=== PATIENT | female | born 1970 | race Two or more races ===

== ENCOUNTER 2021-05-20 09:00 | Emergency (ER) | payer BC ==
[~2021-05-20] VITALS: Ht 162.6 cm; Wt 83.1 kg
--- NOTE | 2021-05-20 09:09 | PHYS DOC ---
Past Medical History Past Medical History: Hypertension General Adult EDM: Chief Complaint: CHEST PAIN HPI: HPI: Patient is a 51 year old female who present to ER for evaluation of right-sided chest pain that radiated to her right shoulder started yesterday. The pain now radiates to her mid epigastric area. Patient also complained of some headache. Patient denies any personal history coronary artery disease or history of blood clot disorder. Patient has history of hypertension. Patient do have family history of coronary artery disease. Patient denies any cough or fever. Patient said she has been in a work out program, has been pulling weight. Patient said she lost 15 lbs in 2 months. She said on Tuesday, she started a new work out program. Review of Systems: Review of Systems: Constitutional: Denies fever or chills. [] Eyes: Denies change in visual acuity. [] HENT: Denies nasal congestion or sore throat. [] Respiratory: Denies cough or shortness of breath. [] Cardiovascular: Denies chest pain or edema. [] GI: Denies abdominal pain, nausea, vomiting, bloody stools or diarrhea. [] : Denies dysuria. [] Musculoskeletal: Denies back pain or joint pain. [] Integument: Denies rash. [] Neurologic: Denies headache, focal weakness or sensory changes. [] Endocrine: Denies polyuria or polydipsia. [] Lymphatic: Denies swollen glands. [] Psychiatric: Denies depression or anxiety. [] Heart Score: C/O Chest Pain: Yes HEART Score for Chest Pain: HEART Score for Chest Pain Response (Comments) Value History Slighlty/Non-Suspicious 0 ECG Normal 0 Age >45 - < 65 1 Risk Factors 1 or 2 Risk Factors 1 Troponin < Normal Limit 0 Total 2 Risk Factors: Risk Factors: DM, Current or recent (<one month) smoker, HTN, HLP, family h istory of CAD, obesity. Risk Scores: Score 0 - 3: 2.5% MACE over next 6 weeks - Discharge Home Score 4 - 6: 20.3% MACE over next 6 weeks - Admit for Clinical Observation Score 7 - 10: 72.7% MACE over next 6 weeks - Early Invasive Strategies Physical Exam: PE: Constitutional: Well developed, well nourished, no acute distress, non-toxic appearance. [] HENT: Normocephalic, atraumatic, bilateral external ears normal, oropharynx moist, no oral exudates, nose normal. [] Eyes: PERRLA, EOMI, conjunctiva normal, no discharge. [] Neck: Normal range of motion, no tenderness, supple, no stridor. [] Cardiovascular:Heart rate regular rhythm, no murmur [] Lungs & Thorax: Bilateral breath sounds clear to auscultation [] Abdomen: Bowel sounds normal, soft, no tenderness, no masses, no pulsatile masses. [] Skin: Warm, dry, no erythema, no rash. [] Back: No tenderness, no CVA tenderness. [] Extremities: No tenderness, no cyanosis, no clubbing, ROM intact, no edema. [] Neurologic: Alert and oriented X 3, normal motor function, normal sensory function, no focal deficits noted. [] Psychologic: Affect normal, judgement normal, mood normal. [] Current Patient Data: Labs: Laboratory Tests Test 05/20/21 09:30 White Blood Count 5.7 x10^3/uL Red Blood Count 4.70 x10^6/uL Hemoglobin 14.0 g/dL Hematocrit 41.3 % Mean Corpuscular Volume 88 fL Mean Corpuscular Hemoglobin 30 pg Mean Corpuscular Hemoglobin Concent 34 g/dL Red Cell Distribution Width 13.3 % Platelet Count 181 x10^3/uL Neutrophils (%) (Auto) 59 % Lymphocytes (%) (Auto) 32 % Monocytes (%) (Auto) 7 % Eosinophils (%) (Auto) 2 % Basophils (%) (Auto) 1 % Neutrophils # (Auto) 3.3 x10^3/uL Lymphocytes # (Auto) 1.8 x10^3/uL Monocytes # (Auto) 0.4 x10^3/uL Eosinophils # (Auto) 0.1 x10^3/uL Basophils # (Auto) 0.1 x10^3/uL Sodium Level 142 mmol/L Potassium Level 3.7 mmol/L Chloride Level 105 mmol/L Carbon Dioxide Level 27 mmol/L Anion Gap 10 Blood Urea Nitrogen 19 mg/dL Creatinine 0.8 mg/dL Estimated GFR (Cockcroft-Gault) 75.6 BUN/Creatinine Ratio 24 Glucose Level 96 mg/dL Calcium Level 8.9 mg/dL Magnesium Level 2.2 mg/dL Total Bilirubin 0.3 mg/dL Aspartate Amino Transf (AST/SGOT) 17 U/L Alanine Aminotransferase (ALT/SGPT) 24 U/L Alkaline Phosphatase 62 U/L Troponin I Quantitative < 0.017 ng/mL LN-Ixe-M-Type Natriuretic Peptide 16 pg/mL Total Protein 7.2 g/dL Albumin 3.5 g/dL Albumin/Globulin Ratio 0.9 Lipase 120 U/L Current Medications Medications (Trade) Dose Ordered Sig/Betty Route PRN Reason Start Time Stop Time Status Last Admin Dose Admin Multi-Ingredient Mouthwash/Gargle (Gi Cocktail) 20 ml 1X ONCE SWSW 05/20/21 11:00 05/20/21 11:01 DC 05/20/21 11:14 Famotidine (Pepcid Vial) 20 mg 1X ONCE IVP 05/20/21 11:00 05/20/21 11:01 DC 05/20/21 11:00 Iohexol (Omnipaque 350 Mg/ml) 90 ml 1X ONCE IV 05/20/21 12:15 05/20/21 12:16 DC Info (CONTRAST GIVEN -- Rx MONITORING) 1 each PRN DAILY PRN MC SEE COMMENTS 05/20/21 12:15 05/22/21 12:14 EKG: EKG: EKG was done at 907, heart rate 66 bpm, normal sinus rhythm, normal axis, no ST segment elevation. Radiology/Procedures: Radiology/Procedures: [][facility] [address] [place] [address] IMAGING REPORT Signed PATIENT: SHIVANI FERNANDEZACCOUNT: [id number] : 1970 LOCATION: ER AGE: 51 SEX: F EXAM STATUS: PRE ER ORD. PHYSICIAN: KARI GRANDA DO REASON: chest pain PROCEDURE: PORTABLE CHEST 1V EXAM: Chest, single view. HISTORY: Chest pain. COMPARISON: None. FINDINGS: A frontal view of the chest is obtained. There is no infiltrate, pleural effusion or pneumothorax. The heart is normal in size. IMPRESSION: No acute pulmonary finding. Electronically signed by: Francisca Anderson MD (05/20/2021 9:55 AM) [id number] DICTATED and SIGNED BY: FRANCISCA ANDERSON MD DATE: 05/20/21 [id number] [facility] [address] [place] [address] IMAGING REPORT Signed PATIENT: SHIVANI FERNANDEZACCOUNT: [id number] : 1970 LOCATION: ER AGE: 51 SEX: F EXAM STATUS: REG ER ORD. PHYSICIAN: KARI GRANDA DO REASON: RUQ/EPIGASTRIC ABDOMINAL PAIN PROCEDURE: ABDOMEN LTD EXAM: Abdomen sonogram. HISTORY: Pain. TECHNIQUE: Sonographic imaging of the abdomen was performed. COMPARISON: None. FINDINGS: The liver is normal in size. No focal hepatic lesion is seen. The gallbladder is unremarkable. The common bile duct is normal in caliber. The right kidney and vena cava are unremarkable. The pancreas is predominantly obscured due to bowel gas. IMPRESSION: 1. No acute sonographic finding. 2. Limited evaluation of the pancreas due to bowel gas. Electronically signed by: Francisca Anderson MD (05/20/2021 11:01 AM) [id number] DICTATED and SIGNED BY: FRANCISCA ANDERSON MD DATE: 05/20/21 [id number] 0 Course & Med Decision Making: Course & Med Decision Making Pertinent Labs and Imaging studies reviewed. (See chart for details) Patient is a 51-year-old female who present to ER due to right-sided chest pain that radiated to her mid epigastric area., EKG and cardiac enzymes came back normal. However, abdominal ultrasound did not show an acute problem. Patient was given GI cocktail and Pepcid, see few much better. Patient declined to have CTA of her chest to rule out dissection or PE. Patient states she will go home and follow-up with her family physician for outpatient follow-up Adam Disclaimer: Adam Disclaimer: This electronic medical record was generated, in whole or in part, using a voice recognition dictation system. Departure Departure Impression: Primary Impression: Chest pain Additional Impression: Gastritis Disposition: HOME / SELF CARE / HOMELESS Condition: IMPROVED Patient Instructions: Chest Pain (Nonspecific), Gastritis, Adult Additional Instructions: Thank you for visiting our Emergency Department. We appreciate you trusting us with your care. If any additional problems come up don't hesitate to return to visit us. Please follow up with your primary care provider so they can plan additional care if needed and know about the problem that you had. If symptoms worsen come back to the Emergency Department. Any concerning symptoms that start such as chest pain, shortness of air, weakness or numbness on one side of the body, running high fevers or any other concerning symptoms return to the ER. Scripts Sucralfate (CARAFATE) 1 Gm Tablet 1 TAB PO QID for 14 Days, #56 TAB 0 Refills Prov: KARI GRANDA DO 05/20/21 Omeprazole Magnesium (PRILOSEC OTC) 20 Mg Tablet. 1 TAB PO DAILY for 30 Days, #30 TAB 0 Refills Prov: KARI GRANDA DO 05/20/21 KARI GRANDA DO May 20, 2021 09:09
[2021-05-20 09:46] LABS: BASO # 0.1 x10^3/uL (0.0-0.2); BASO % 1 % (0-3); EOS # 0.1 x10^3/uL (0.0-0.7); EOS % 2 % (0-3); HEMATOCRIT 41.3 % (36.0-47.0); LYMPH # 1.8 x10^3/uL (1.0-4.8); LYMPH % 32 % (24-48); MEAN CORPUSCULAR HEMOGLOBIN 30 pg (25-35); MEAN CORPUSCULAR HGB CONC 34 g/dL (31-37); MEAN CORPUSCULAR VOLUME 88 fL (79-100); MONO # 0.4 x10^3/uL (0.0-1.1); MONO % 7 % (0-9); NEUT # 3.3 x10^3/uL (1.8-7.7); NEUT % 59 % (31-73); PLATELET COUNT 181 x10^3/uL (140-400); RED CELL DISTRIBUTION WIDTH 13.3 % (11.5-14.5); WHITE BLOOD COUNT 5.7 x10^3/uL (4.0-11.0)
[2021-05-20 09:57] LABS: CALCIUM 8.9 mg/dL (8.5-10.1); CREATININE 0.8 mg/dL (0.6-1.0); GFR 75.6; POTASSIUM 3.7 mmol/L (3.5-5.1)
--- NOTE | 2021-05-20 09:58 | RAD ---
EXAM: Chest, single view. HISTORY: Chest pain. COMPARISON: None. FINDINGS: A frontal view of the chest is obtained. There is no infiltrate, pleural effusion or pneumo thorax. The heart is normal in size. IMPRESSION: No acute pulmonary finding. Electronically signed by: Francisca Anderson MD (05/20/2021 9:55 AM) [id number]
[2021-05-20 10:03] LABS: ALBUMIN 3.5 g/dL (3.4-5.0); ALBUMIN/GLOBULIN RATIO 0.9 (1.0-1.7); MAGNESIUM 2.2 mg/dL (1.8-2.4); TOTAL BILIRUBIN 0.3 mg/dL (0.2-1.0); TOTAL PROTEIN 7.2 g/dL (6.4-8.2)
[2021-05-20] MEDS ORDERED: FAMOTIDINE 20 MG/2 ML VIAL IVP ONE (11:00)
[2021-05-20] MEDS ORDERED: LIDO:MAALOX 1:1 20 ML SINGLE DOSE. SWSW ONE (11:00)
--- NOTE | 2021-05-20 11:03 | RAD ---
EXAM: Abdomen sonogram. HISTORY: Pain. TECHNIQUE: Sonographic imaging of the abdomen was performed. COMPARISON: None. FINDINGS: The liver is normal in size. No focal hepatic lesion is seen. The gallbladder is unremarkab le. The common bile duct is normal in caliber. The right kidney and vena cava are unremarkable. The p ancreas is predominantly obscured due to bowel gas. IMPRESSION: 1. No acute sonographic finding. 2. Limited evaluation of the pancreas due to bowel gas. Electronically signed by: Francisca Anderson MD (05/20/2021 11:01 AM) [id number]
--- NOTE | 2021-05-20 11:39 | EKG ---
[facility] [address] [place] [address] Test Date: 2021-05-20 Test Time: 10:10:20 Pat Name: SHIVANI FERNANDEZ Department: Room: Gender: F [employer] Work[employer]: : 1970 Requested By: KARI GRANDA Order Number: [id number] Reading MD: Measurements Intervals [place] Rate: 67 P: -18 CO: 166 QRS: 17 QRSD: 72 T: -1 QT: 404 QTc: 430 Interpretive Statements SINUS RHYTHM NORMAL ECG RI6.02 No previous ECG available for comparison
[2021-05-20] MEDS ORDERED: IOHEXOL 350 MG/ML 100 ML VIAL. IV ONE (12:15)
[2021-05-20] MEDS ORDERED: CONTRAST GIVEN. MC PRN (12:15)
[2021-05-20 12:45] VITALS: BP 124/59
[2021-05-20] MEDS ORDERED: OMEP20TA63 PO (12:47)
[2021-05-20] MEDS ORDERED: SUCR1TAB35 PO (12:47)
== END 2021-05-20 12:58 | disposition home or self-care (01) ==
LOC: ER 09:00
DX: K29.70 Gastritis, unspecified, without bleeding (principal); R07.89 Other chest pain; M25.511 Pain in right shoulder; I10 Essential (primary) hypertension
CPT/HCPCS: 36415; 71045; 76705; 80053; 83690; 83735; 83880; 84484; 85025; 93005; 96374; 99285; J3490